=== PATIENT | female | born 1985 | race Caucasian/White ===

== ENCOUNTER 2021-02-17 15:07 | Inpatient (IN) | payer OTHER ==
[~2021-02-17] VITALS: Ht 170.2 cm; Wt 95.0 kg
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
[2021-02-17 15:15] VITALS: BP 115/75
[2021-02-17 16:34] LABS: ABSOLUTE NEUTROPHILS 9.2 thou/uL (1.4-8.2); BASOPHILS 0.8 % (0.0-2.0); EOSINOPHILS 0.6 % (0.0-3.0); HEMATOCRIT 42.8 % (37.0-47.0); HEMOGLOBIN 14.4 gm/dL (12.0-15.0); LYMPHOCYTES 19.4 % (24.0-44.0); MCH 30.6 pg (26.0-34.0); MCHC 33.5 g/dL (28.0-37.0); MCV 91.2 fL (80.0-100.0); MONOCYTES 7.6 % (1.0-8.0); PLATELET COUNT 212 thou/uL (150-400); POLYS 71.6 % (36.0-66.0); RDW 12.9 % (10.5-14.5); WBC 12.9 thou/uL (4.0-11.0)
[2021-02-17 16:36] LABS: CALCIUM 9.7 mg/dL (8.5-10.1); CREATININE 0.7 mg/dL (0.6-1.0)
[2021-02-17 16:42] LABS: ALBUMIN 3.3 g/dL (3.4-5.0); TOTAL BILIRUBIN 0.4 mg/dL (0.2-1.0); TOTAL PROTEIN 6.8 g/dL (6.4-8.2)
[2021-02-17 17:58] VITALS: BP 112/72
[2021-02-17 21:45] VITALS: BP 101/70
[2021-02-18 02:45] VITALS: BP 106/71
--- NOTE | 2021-02-18 03:36 | NUR ---
ASSESSED AT START OF SHIFT. PT ADMITTED FROM THE ER. A&OX2 FORGETFULL. ADMISSION DONE AND PT ORIENTED TO THE UNIT. CALLED PT DPOA AND UPDATED ON PROGRESS. IV INTACT IN RT AC FLUIDS AND ABX INFUSING. PT INCONTINENT OF BLADDER. RT GLUTEAL ULCER NOTED WOUND PICTURE TAKEN. PERICARE PROVIDED. FALL PREC IN PLACE, PT REPOSITIONED FOR COMFORT. PT IS BLIND PER GRAND DAD HAS BEEN BLIND SINCE 2019. FALL PREC MAINTAINED AND ROOM INFRONT OF THE NURSES STATION.
[2021-02-18] MEDS ORDERED: PAIN RELIEVER325 MG PO (05:38)
[2021-02-18] MEDS ORDERED: BUSPIRONE HCL10 MG PO (05:40)
[2021-02-18] MEDS ORDERED: DEPAKOTE 250MG250 M1 PO (05:42)
[2021-02-18] MEDS ORDERED: FAMOTIDINE 20 M20 MG PO (05:43)
[2021-02-18] MEDS ORDERED: VIMPAT200 MG PO (05:44)
[2021-02-18] MEDS ORDERED: ELEPSIA XR1500 MG PO (05:46)
[2021-02-18] MEDS ORDERED: ROXICODONE5 M2 PO (05:50)
[2021-02-18] MEDS ORDERED: PREDNISONE 20 M20 MG (05:53)
[2021-02-18] MEDS ORDERED: PHENYTOIN SODI100 M3 PO (05:55)
--- NOTE | 2021-02-18 13:10 | NUR ---
Patient A/O X 2. Room air. Bedbound. Incont B/B. Rigth AC IV flushes well, dressing dry, clean and intact. She is very forgetful. Her face is flushed. Bilateral legs flaccid. She will be moving to 4W room 460.
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
[2021-02-18 15:01] VITALS: BP 106/71
[2021-02-18 20:01] VITALS: BP 138/90
--- NOTE | 2021-02-18 20:20 | NUR ---
PT UP TO FLOOR APPROX 1400. PT PLESANTLY CONFUSED A&OX2. PT VERY FORGETFUL. RR CALLED AT APPROX 1840 BY [employer] SETTER, D/T PT HAVING A SEIZURE. EKG AND LABS DONE DR. CAVAZOS NOTIFIED AND NO ORDERS GIVEN, POSSIBLY SEUDOSEIZURES. PT COMPLAIN OF PAIN AND NAUSEA, ZOFRAN ORDERED OBTAINED, ZOFRAN GIVEN AND IV MORPHINE GIVEN ORDERED AT 1822. IV ABT GIVEN ORDERED. WILL CONTNIUE TO MONITOR.
[2021-02-19 02:37] VITALS: BP 139/90
--- NOTE | 2021-02-19 04:39 | NUR ---
pain controlled this shift. patient turned q 2 hours. no seizures noted this shift. patient incontinent pericare and barrier cream applied as needed. fall precaution in place. patient in bed asleep at this time breathing regular and unlaboured.
[2021-02-19 07:55] VITALS: BP 121/81
--- NOTE | 2021-02-19 10:51 | NUR ---
Assessed for wound. Pt noted with cellulitis/abscess of the buttock and infected decubitus ulcer to gluteal area. Surgery consulted. Pt reports appetite good with good intakes noted. Agreed to start Stanislav BID for wound healing. Hx TBI, ETOH. She is visually impaired and requires assist with all ADLs. Will place at low nutrition risk with appropriate interventions initiated. F/u r/t surgery plan.
--- NOTE | 2021-02-19 12:32 | NUR ---
Assumed pt care this am, pt is a total care and blind. INcontinent of both bowel and bladder. Surgeon visited and packed and did wound care. Pain is managed with medications.
[2021-02-19 15:27] VITALS: BP 137/94
--- NOTE | 2021-02-19 15:40 | NUR ---
PT CONTINUES ON IV ABX VANC AND ZOSYN. WC FOLLOWING. CM FOLLOWING REGARDING DC PLANNING. PT TO RETURN TO [facility] ONCE MEDICALLY STABLE.
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
[2021-02-19 19:53] VITALS: BP 125/85
--- NOTE | 2021-02-20 03:15 | NUR ---
PATIENT AOX1 CONFUSED AND FORGETFUL. PATIENT TEARFUL AT TIMES.PATIENT INCONTIENT THIS SHIFT PERICARE AND BARRIER CREAM APPLIED NEEDED. PATIENT LEFT GLUTERAL LESION WAS PACKED BY DR. ROWAN, DRESSING FELL OF D/T PATIENT BEING INCONTIENT.FALL PRECAUTION IN PLACE. PATIENT IN BED ASLEEP AT THIS TIME BREATHING REGULAR AND UNLABOURED.
[2021-02-20 07:47] VITALS: BP 126/86
[2021-02-20] MEDS ORDERED: AUGMENTIN 875-1 EACH PO (08:57)
--- NOTE | 2021-02-20 09:23 | EKG ---
[address] [address] ELECTROCARDIOGRAM REPORT Name: GEORGE GANN Room #: 460-P ADM IN M.R.#: [id number] Admission: 02/17/21 Attend Phys: Wilian Barreto Discharge: Date of : [birth year] Report #: [id number] [facility] Test Date: 2021-02-18 Test Time: 18:50:54 Pat Name: GEORGE GANN Department: Room: 460 Gender: F [employer] Machine: UNKNOWN : 1985 Requested By: Wilian Barreto Order Number: [id number] MD: Portillo Moulton Measurements Intervals [place] Rate: 95 P: 36 UT: 152 QRS: 17 QRSD: 98 T: 18 QT: 373 QTc: 469 Interpretive Statements Sinus rhythm Normal tracing No previous ECG available for comparison Electronically Signed On 02-20-2021 9:22:48 CDT by Portillo Moulton [email or web address] <ELECTRONICALLY SIGNED> By: Portillo Moulton MD, [facility] 02/20/21 0922 1850 1850 Portillo Moulton MD, FACC /EPI
--- NOTE | 2021-02-20 11:44 | NUR ---
FAXED DISCHARGE ORDERS, SUMMARY AND NEGATIVE COVID (02/20/21) TO [facility] [place] CONFIRM WITH CAT/LIAISON THAT THEY RECEIVED. SHE IS ARRANGING [facility] TRANSPORT[facility] AND WILL NOTIFY US WHEN AVAILABLE. CHART COPY REQUESTED. [facility] P [phone]; FAX [phone]; M [phone]
--- NOTE | 2021-02-20 12:06 | NUR ---
FAXED DISCHARGE ORDERS, SUMMARY AND NEGATIVE COVID (02/20/21) TO [facility]. WILL CONFIRM WITH CAT/LIAISON OF [place] IF THEY RECEIVED AND ARE ARRANGING [facility]RETCHER VAN TRANSPORTATION. THEY WILL NOTIFY US SOON THEY SCHEDULE. CHART COPY REQUESTED. [facility] P [phone]; FAX [phone]; M [phone]
--- NOTE | 2021-02-20 13:29 | NUR ---
CARE TEAM INDICATED THAT PT IS MEDICALLY STABLE TO DISCHARGE BACK TO [facility] THIS DAY. CHART COPY MADE. ORDERS FAXED. DK MARTINEZ ARRANGED FOR CARD CUTTER BETWEEN [phone]. CM CALLED AND LEFT VM FOR PT'S GRANDFATHER. NURSE GIVEN NUMBER FOR REPORT. NO OTHER CM INTERVENTION INDICATED. CASE CLOSED.
[2021-02-20 16:17] VITALS: BP 153/97
--- NOTE | 2021-02-20 16:43 | NUR ---
Assumed pt care this am, vs stable. Pt is a total care, diet and medications are well tolerated though medications in the pm were refused since pt was told she was going back to the facility and stated she would rather take them there. Pt is blind and very forgetful. IV was removed by the pt 2x. Dc orders given, report ccalled oput and given to the receiving RN in the facility. Wounds were packed and cleaned by the surgeon. POC followed, no signs or verbalizations of distress noted. Pt is now dc and was picked up by transport.
== END 2021-02-20 16:47 | DRG 602 ==
LOC: ER 15:07 → 4S 18:21 → ER 18:21 → EROBS 18:35 → 4S 18:36 → 4W 02-18 13:48
PROVIDERS: Emergency Medicine; ADMIT Hospitalist; ATTEND Hospitalist
DX: L03.317 Cellulitis of buttock (principal); L89.323 Pressure ulcer of left buttock, stage 3; L89.313 Pressure ulcer of right buttock, stage 3; E44.1 Mild protein-calorie malnutrition; L02.31 Cutaneous abscess of buttock; E66.01 Morbid (severe) obesity due to excess calories; R53.81 Other malaise; F32.9 Major depressive disorder, single episode, unspecified; I10 Essential (primary) hypertension; Z20.822 Contact with and (suspected) exposure to COVID-19; Z88.1 Allergy status to other antibiotic agents; Z88.8 Allergy status to other drugs, medicaments and biological substances; Z68.32 Body mass index [BMI] 32.0-32.9, adult; Z87.820 Personal history of traumatic brain injury; Z86.19 Personal history of other infectious and parasitic diseases
CPT/HCPCS: 10040; 10195